=== PATIENT | male | born 1930 | race Caucasian/White ===

== ENCOUNTER 2018-06-08 15:07 | Emergency (ER) | payer OTHER ==
--- NOTE | 2018-06-08 15:32 | EDPHY ---
HPI/HX/ROS/PE/MDM Narrative: CHIEF COMPLAINT: Right leg bruising HPI: This patient is a pleasant, generally healthy 88 year male. He presents today with concerns regarding an area of bruising to his upper right leg. He cannot identify any specific precipitating events or trauma. The area is mildly tender , and he can feel it when he sits. He denies any other areas of unexplained bruising. He is not anticoagulated. He has no known clotting disorders. REVIEW OF SYSTEMS: No fever, no chills. PMH: Arthritis. Glaucoma. SOCIAL HISTORY: Retired, former professor. Lives in [place]. Never smoked. PHYSICAL EXAM: General: Patient is alert, in no acute distress. Right le-inch diameter area of ecchymosis to proximal lateral right thigh, slightly tender to palpation. Well-healed surgical incision from prior hip surgery. Neuro: Oriented x3. Normal motor function. Normal sensory function. ED Course: 88 y/o male presents with a 4" diameter area of ecchymosis over his upper right thigh with no known associated traumatic event. Plan for labs including CBC, chemistries, and coag panel to rule out any coagulopathies or other acute abnormalities. Plan for x-ray of right femur. X-ray shows stable postsurgical changes following ORIF of right femur as well as some degenerative changes. No acute processes. Reviewed laboratory studies. These are completely unremarkable. Reassessed patient. Discussed imaging and laboratory results. He is relieved that his tests today are normal. Plan to discharge home in good condition. Follow up and return precautions discussed. He is comfortable with this plan. MDM: This patient presents with a small area of ecchymosis on his posterolateral thigh. There is no sign of fracture or coagulation abnormality. This appears to represent a contusion - I see no indication for further imaging. - Data Points Imaging Results: Imaging Impressions Femur X-Ray 06/08/18 15:37 Impression: Postsurgical changes of open reduction internal fixation of right femoral neck fracture with stable alignment. 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 Laboratory Results: Laboratory Results 06/08/18 15:45 06/08/18 15:45 06/08/18 06/08/18 06/08/18 15:45 15:45 15:45 WBC 7.11 10^3/uL 10^3/uL (3.80-9.50) RBC 5.36 10^6/uL 10^6/uL (4.40-6.38) Hgb 15.7 g/dL g/dL (13.7-17.5) Hct 48.7 % % (40.0-51.0) MCV 90.9 fL fL (81.5-99.8) MCH 29.3 pg pg (27.9-34.1) MCHC 32.2 g/dL L g/dL (32.4-36.7) RDW 13.0 % % (11.5-15.2) Plt Count 170 10^3/uL 10^3/uL (150-400) MPV 9.6 fL fL (8.7-11.7) Neut % (Auto) 63.6 % % (39.3-74.2) Lymph % (Auto) 19.8 % % (15.0-45.0) Gonzales % (Auto) 13.9 % H % (4.5-13.0) Eos % (Auto) 2.0 % % (0.6-7.6) Baso % (Auto) 0.3 % % (0.3-1.7) Nucleat RBC Rel Count 0.0 % % (0.0-0.2) Absolute Neuts (auto) 4.52 10^3/uL 10^3/uL (1.70-6.50) Absolute Lymphs (auto) 1.41 10^3/uL 10^3/uL (1.00-3.00) Absolute Monos (auto) 0.99 10^3/uL H 10^3/uL (0.30-0.80) Absolute Eos (auto) 0.14 10^3/uL 10^3/uL (0.03-0.40) Absolute Basos (auto) 0.02 10^3/uL 10^3/uL (0.02-0.10) Absolute Nucleated RBC 0.00 10^3/uL 10^3/uL (0-0.01) Immature Gran % 0.4 % % (0.0-1.1) Immature Gran # 0.03 10^3/uL 10^3/uL (0.00-0.10) PT 13.6 SEC SEC (12.0-15.0) INR 1.02 (0.83-1.16) APTT 27.6 SEC SEC (23.0-38.0) Sodium 138 mEq/L mEq/L (135-145) Potassium 4.2 mEq/L mEq/L (3.5-5.2) Chloride 107 mEq/L mEq/L (97-110) Carbon Dioxide 28 mEq/l mEq/l (22-31) Anion Gap 3 mEq/L L mEq/L (6-14) BUN 23 mg/dL mg/dL (7-23) Creatinine 1.3 mg/dL mg/dL (0.7-1.3) Estimated GFR 52 Glucose 88 mg/dL mg/dL (70-100) Calcium 9.3 mg/dL mg/dL (8.5-10.4) General Time Seen by Provider: 06/08/18 15:29 Initial Vital Signs: Initial Vital Signs Temperature (C) 36.7 C 06/08/18 15:19 Heart Rate 69 06/08/18 15:19 Respiratory Rate 18 06/08/18 15:19 Blood Pressure 140/71 H 06/08/18 15:19 O2 Sat (%) 95 06/08/18 15:19 O2 Delivery Mode Room Air Allergies/Adverse Reactions: No Known Allergies Allergy (Unverified 06/08/18 15:18) Home Medications: Medication Instructions Recorded NK [No Known Home Meds] 06/08/18 Departure - Departure Disposition: Home, Routine, Self-Care Clinical Impression: Thigh hematoma Condition: Good Instructions: Contusion in Adults (ED), Hematoma (ED) Additional Instructions: Please follow up with your primary care provider for further evaluation. Your exam today seems consistent with bruising. Return to the emergency department for worsening pain or swelling, difficulty walking, further unexplained bruising, or other worsening of condition or further concerns. Referrals: Kaveh Rosenbaum MD [Primary Care Provider] - As per Instructions Report Scribed for: Edward Melgar Report Scribed by: Lilliam Estrada Date of Report: 06/08/18 Time of Report: 15:33 Physician Review and Approval Statement: Portions of this note were transcribed by an ED scribe. I personally performed the history, physical exam, and medical decision making; and confirm the accuracy of the information in the transcribed note.
[2018-06-08 16:00] LABS: PLATELET COUNT 170 10^3/uL (150-400)
[2018-06-08 16:11] LABS: INR 1.02 (0.83-1.16); PROTIME(PATIENT) 13.6 SEC (12.0-15.0)
[2018-06-08 16:40] VITALS: BP 125/69
== END 2018-06-08 16:40 | disposition home or self-care (01) ==
DX: S70.11XA Contusion of right thigh, initial encounter (principal)